=== PATIENT | female | born 1945 | race Caucasian/White ===

== ENCOUNTER 2019-11-21 07:40 | Outpatient (CLI) | payer MEDICARE, SELFPAY ==
--- NOTE | ~2019-11-21 | MM_ITS ---
EXAMINATION: MM screening emir BI w rafael HISTORY: Screening TECHNIQUE: Craniocaudal and mediolateral oblique 3-D tomosynthesis images were obtained and synthetic 2-D images were generated. CAD analysis was submitted and interpreted. COMPARISON: Comparison to multiple prior studies sequentially, with oldest reviewed study dated 10/2013. BREAST PARENCHYMAL COMPOSITION: There are scattered areas of fibroglandular density. FINDINGS: There are developing asymmetries in the left breast which are obscured by fibroglandular ti ssue. The right breast is stable without evidence for malignancy. IMPRESSION: 1. Developing right breast asymmetries. 2. Additional mammographic views and possible breast ultrasound are recommended. BI-RADS Category 0: Incomplete: Needs additional imaging evaluation. Reviewed, dictated and finalized at location A. IMPRESSION: 1. Developing right breast asymmetries. 2. Additional mammographic views and possible breast ultrasound are recommended . BI-RADS Category 0: Incomplete: Needs additional imaging evaluation.
== END 2019-11-21 07:41 | disposition home or self-care (01) ==
PROVIDERS: Visit Provider Obstetrics & Gynecology
DX: Z12.31 Encounter for screening mammogram for malignant neoplasm of breast (principal); R92.8 Other abnormal and inconclusive findings on diagnostic imaging of breast
CPT/HCPCS: 77063; 77067

== ENCOUNTER → 2019-12-05 07:33 | Outpatient (CLI) | payer MEDICARE, SELFPAY ==
--- NOTE | ~2019-12-05 | MMUS_ITS ---
EXAMINATION: MM diagnostic mammo unilat LT, US breast LT complete HISTORY: Developing left mammographic asymmetries reported on 11/21/2019 screening mammogram TECHNIQUE: Additional 3-D tomosynthesis images of the left breast were performed and synthetic 2-D im ages were generated. Rolled medial and rolled lateral craniocaudal views of left breast. CAD analysis was submitted and interpreted. High resolution complete left breast ultrasound was performed. COMPARISON: 11/21/2019 bilateral digital screening mammogram FINDINGS: MAMMOGRAPHIC FINDINGS: Approximately 3 x 7.4 mm nodular density is suggested in the inner aspect of the lower inner quadrant of the left breast on craniocaudal view (craniocaudal Tomosynthesis image 11/49. Approximately 5 x 8.5 mm circumscribed mass is suggested in the outer mid upper left breast (MLO Marcial synthesis image 20/61). There is relatively nodular filling fibroglandular stroma which prevents exclusion of any additional possible masses. Complete left breast ultrasound examination was performed. ULTRASOUND: 2:00 3 cm from nipple: 2.8 x 3.6 x 3.3 mm circumscribed hypoechoic lesion without internal vascularit y or posterior shadowing 7:00 5 cm from nipple: Parallel circumscribed hypoechoic 3.9 x 3 x 4.6 mm lesion without internal vas cularity or posterior shadowing IMPRESSION: 1. Probable benign findings at 2:00 and 7:00 2. 6 month follow-up diagnostic left mammogram and left targeted breast ultrasound examination are re commended BI-RADS category 3, probably benign findings. Reviewed, dictated and finalized at location A. IMPRESSION: 1. Probable benign findings at 2:00 and 7:00 2. 6 month follow-up diagnostic left mammogram and left targeted breast ultraso und examination are recommended BI-RADS category 3, probably benign findings.
== END ==
PROVIDERS: Visit Provider Obstetrics & Gynecology
DX: R92.8 Other abnormal and inconclusive findings on diagnostic imaging of breast (principal)
CPT/HCPCS: 76641; 77065

== ENCOUNTER → 2020-06-12 07:48 | Outpatient (CLI) | payer MEDICARE, SELFPAY ==
--- NOTE | ~2020-06-12 | MMUS_ITS ---
EXAMINATION: MM diagnostic emir LT w rafael, US breast LT complete HISTORY: Six-month follow-up of probable benign findings at 2:00 and 7:00 TECHNIQUE: ML, MLO and cc full field and spot 3-D tomosynthesis images of the left breast were perfor med and synthetic 2-D images were generated. CAD analysis was submitted and interpreted. High resolut ion complete left breast ultrasound was performed. COMPARISON: 12/05/2019 diagnostic left mammogram and complete left breast ultrasound examination 11/21/2019 bilateral digital screening mammogram 05/23/2013 bilateral digital screening mammogram BREAST PARENCHYMAL COMPOSITION: There are scattered areas of fibroglandular density. FINDINGS: MAMMOGRAPHIC FINDINGS: Again noted is nodular fibroglandular stroma of the left breast, relatively stable since 11/21/2019. No suspicious mammographic mass or architectural distortion, malignant constipation, skin thickening or retraction is evident. Relatively stable left axillary lymph nodes since 05/23/2013. ULTRASOUND: 2:00 3 cm from nipple: Approximately 3.7 mm wide 3.7 mm deep antiparallel configuration irregular les ion with posterior shadowing, suspicious for possible small malignancy. Ultrasound-guided biopsy is r ecommended. 1:00 2 cm from nipple: Probable small lymph node measuring approximately 2 x 4 mm 7:00 5 cm from nipple: Circumscribed hypoechoic approximately 2.6 x 5.5 mm lesion with some posterior shadowing. Ultrasound-guided biopsy is recommended. IMPRESSION: 1. Suspicious sonographic lesions at 2:00 and 7:00 2. Ultrasound-guided biopsy of 2:00 and 7:00 lesions is recommended BI-RADS category 4, suspicious findings. Dr. Acevedo telephoned the report and ultrasound guided biopsy recommendation for 2:00 and 7:[address] Ricardo [facility] [employer] on 06/12/2020 at 0924 hours. Reviewed, dictated and finalized at location A. IMPRESSION: 1. Suspicious sonographic lesions at 2:00 and 7:00 2. Ultrasound-guided biopsy of 2:00 and 7:00 lesions is recommended BI-RADS category 4, suspicious findings. Dr. Acevedo telephoned the report and ultrasound guided biopsy recommendation for 2:00 and 7:[address] Ricardo Benito[facility] [employer] on 06/12/2020 at 0924 hours.
== END ==
PROVIDERS: Visit Provider Obstetrics & Gynecology
DX: R92.8 Other abnormal and inconclusive findings on diagnostic imaging of breast (principal)
CPT/HCPCS: 76641; 77061; 77065; G0279

== ENCOUNTER → 2021-03-21 00:14 | Outpatient (CLI) | payer MEDICARE, SELFPAY ==
[2021-03-21 13:23] LABS: Influenza A QL RT-PCR Negative (Negative); Influenza B QL RT-PCR Negative (Negative); SARS-CoV-2 RNA PCR Negative
== END ==
PROVIDERS: PCP Internal Medicine; Visit Provider Internal Medicine
DX: R68.89 Other general symptoms and signs (principal); Z20.822 Contact with and (suspected) exposure to COVID-19
CPT/HCPCS: 87502; C9803; U0003; U0005

== ENCOUNTER → 2021-11-10 07:09 | Outpatient (CLI) | payer MEDICARE, SELFPAY ==
--- NOTE | ~2021-11-10 | MM_ITS ---
EXAMINATION: MM screening emir BI w rafael HISTORY: Screening mammogram TECHNIQUE: Craniocaudal and mediolateral oblique 3-D tomosynthesis images were obtained and synthetic 2-D images were generated. CAD analysis was submitted and interpreted. COMPARISON: 06/12/2020 and 12/05/2019 diagnostic left mammogram and complete left breast ultrasound ex aminations 11/21/2019, 05/22/2018, 08/25/2017 bilateral screening mammogram examinations BREAST PARENCHYMAL COMPOSITION: There are scattered areas of fibroglandular density. FINDINGS: Stable circumscribed approximately 4.7 x 9 mm opacity is noted in the posterior mid inner r ight breast, unchanged since 08/25/2017, consistent with benign lesion. No suspicious mass, architectural distortion, malignant calcification, skin thickening or retraction of either breast is detected. No significant new or developing mammographic density is noted. IMPRESSION: 1. Suspicious sonographic findings noted at left breast 2:00 and 7:00 positions on 06/12/2020 2. Targeted left breast ultrasound examination at 2:00 and 7:00 is recommended BI-RADS Category 0: Incomplete: Needs additional imaging evaluation. Reviewed, dictated and finalized at location A.
== END ==
PROVIDERS: PCP Internal Medicine; Visit Provider Nurse Practitioner
DX: Z12.31 Encounter for screening mammogram for malignant neoplasm of breast (principal); R92.8 Other abnormal and inconclusive findings on diagnostic imaging of breast
CPT/HCPCS: 77063; 77067

== ENCOUNTER 2021-11-18 08:09 | Outpatient (CLI) | payer MEDICARE, SELFPAY ==
--- NOTE | ~2021-11-18 | US_ITS ---
EXAMINATION: US breast LT limited HISTORY: Six-month follow-up for sonographically detected left breast masses TECHNIQUE: Limited left breast ultrasound was performed COMPARISON: 06/12/2020, 12/05/2019 FINDINGS: There is a stable 5 mm x 2 mm oval, circumscribed, parallel, hypoechoic mass with no electrical equipment assembler ior features or internal vascularity at the 7:00 location 5 cm from the nipple. The previously descri bed mass at the 2:00 location is no longer identified. IMPRESSION: Probably benign sonographically detected mass at the 7:00 location 5 cm from the nipple. Given one ye ar of interval stability, recommend targeted left breast ultrasound in 12 months. BI-RADS category 3, probably benign findings. Reviewed, dictated and finalized at location A. IMPRESSION: Probably benign sonographically detected mass at the 7:00 location 5 cm from th e nipple. Given one year of interval stability, recommend targeted left breast ultrasound in 12 months. BI-RADS category 3, probably benign findings.
== END 2021-11-18 08:10 | disposition home or self-care (01) ==
PROVIDERS: PCP Internal Medicine; Visit Provider Nurse Practitioner
DX: R92.8 Other abnormal and inconclusive findings on diagnostic imaging of breast (principal); N63.24 Unspecified lump in the left breast, lower inner quadrant
CPT/HCPCS: 76642